=== PATIENT | female | born 1985 | race Caucasian/White ===

== ENCOUNTER 2021-08-21 11:50 | Observation (INO) | payer MEDICAID, OTHER ==
[~2021-08-21] VITALS: Ht 167.6 cm; Wt 74.4 kg
== END 2021-08-21 15:35 | disposition home or self-care (01) ==
LOC: 8 EST LDRP 11:50
PROVIDERS: ADMIT Obstetrics & Gynecology; ATTEND Obstetrics & Gynecology
DX: O62.9 Abnormality of forces of labor, unspecified (principal); O09.523 Supervision of elderly multigravida, third trimester; Z3A.38 38 weeks gestation of pregnancy
CPT/HCPCS: 59025; 76805; 76818; G0378; 99281